=== PATIENT | female | born 1955 | race Caucasian/White ===

== ENCOUNTER 2020-01-05 10:17 | Emergency (ER) | payer OTHER ==
[~2020-01-05] VITALS: Ht 162.6 cm; Wt 102.5 kg
--- NOTE | 2020-01-05 10:19 | NUR ---
PATIENT BIBA ALS TO ER BED 4
[2020-01-05] MEDS ORDERED: NACL 0.9% 1,000 ML IV ONE (10:25)
[2020-01-05 10:27] VITALS: BP 90/41
--- NOTE | 2020-01-05 10:30 | NUR ---
BLOOD CULTURES DRAWN 1ST SET 10:30, 2ND 10:45,
[2020-01-05] MEDS ORDERED: OCTREOTIDE ACETATE 100 MCG/ML VIAL IV STA (10:33)
--- NOTE | 2020-01-05 10:35 | NUR ---
LAB AT BEDSIDE
[2020-01-05] MEDS ORDERED: cefTRIAXone 1,000 MG VIAL ONE (10:54)
[2020-01-05 10:56] LABS: BASOPHILS # (AUTO) 0.1 K/uL (0.00-0.22); BASOPHILS % (AUTO) 0.9 % (0.0-2.0); EOSINOPHILS # (AUTO) 0.2 K/uL (0-0.4); EOSINOPHILS % (AUTO) 1.6 % (0.0-4.0); LYMPHOCYTES # (AUTO) 2.4 K/uL (2.5-16.5); LYMPHOCYTES % (AUTO) 23.6 % (20.5-51.1); MEAN CORPUSCULAR HEMOGLOBIN 30 pg (27-31); MEAN CORPUSCULAR HGB CONC 32 g/dL (33-37); MEAN CORPUSCULAR VOLUME 93.2 fL (80-94); MONOCYTES # (AUTO) 0.9 K/uL (0.8-1.0); MONOCYTES % (AUTO) 8.9 % (1.7-9.3); NEUTROPHILS # (AUTO) 6.7 K/uL (1.8-7.7); PLATELET COUNT (AUTO) 170 K/uL (140-450); RED BLOOD CELL COUNT(AUTO) 1.46 MIL/uL (4.20-5.40); RED CELL DISTRIBUTION WIDTH 16.4 % (11.6-13.7); WHITE BLOOD COUNT (AUTO) 10.3 K/uL (4.8-10.8)
[2020-01-05 11:05] LABS: ANION GAP 15.1 (8-16); CARBON DIOXIDE 28.1 mmol/L (21-32); POTASSIUM 3.2 mmol/L (3.5-5.1)
[2020-01-05 11:08] LABS: PROTHROMBIN TIME 11.5 secs (10.8-13.4)
[2020-01-05 11:13] LABS: HEMATOCRIT 13.6 % (36-48); HEMOGLOBIN 4.4 g/dL (12.0-16.0)
--- NOTE | 2020-01-05 11:14 | NUR ---
NG TUBE INSERTED AND PLACED TO INTERMITTEN SUCTION, COFFE GROUD CONTENT NOTED, PENDING CHEST X-RAY TO CONFIRM PLACEMENT
[2020-01-05 11:15] LABS: CREATININE 5.6 mg/dL (0.6-1.3)
--- NOTE | 2020-01-05 11:17 | NUR ---
64 Y/O FEMALE DIYALSIS PT BIBA FROM HOME FOR GEN WEAKNESS AND COFFEE GROUND EMESIS X 2DAYS. PT ALSO APPEARS JAUNDICE ON SKIN AND EYES, WARM TO TOUCH, CAP REFILL 2 SEC, EYES PERRLA 3MM. ABDOMEN HARD, BLOATED, RIGID AND TENDER TO TOUCH. PT ACTIVELY VOMITING COFFE GROUND EMESIS. T[place]NEA, RR 30, ON 2L NC O2 [id number]%. HEART NORMAL RATE/ RHYTHM. HEMODYNAMICALLY STABLE. DR. REARDON AT BEDSIDE ASESSING PT. SIDE RAILS UP X2, BED LOCKED AND IN LOWEST POSITION. PHM- HTN, DM, ESRD
--- NOTE | 2020-01-05 11:20 | NUR ---
X RAY AT BEDSIDE
[2020-01-05 11:28] LABS: ANION GAP 15.1 (8-16); CARBON DIOXIDE 28.1 mmol/L (21-32); POTASSIUM 3.2 mmol/L (3.5-5.1)
[2020-01-05 11:29] LABS: ALBUMIN 2.1 g/dL (3.4-5.0); CREATININE 5.6 mg/dL (0.6-1.3); TOTAL BILIRUBIN 0.3 mg/dL (0.0-1.0)
--- NOTE | 2020-01-05 11:43 | NUR ---
RECEIVED CRITICAL LAB VALUES FROM LAB/[facility] HGB: 4.4, HCT:13.6, CREATENINE: 5.6, LACTIC ACID 6.7, DR. REARDON NOTTIFIED
--- NOTE | 2020-01-05 11:45 | NUR ---
URIRE NOT COLLECTED, PT UNABLE TO URINATE AT THIS TIME
--- NOTE | 2020-01-05 11:55 | NUR ---
X RAY RESULTS: NG TUBE PUSHED IN ADDITIONAL 5CM PER DR. REARDON ORDER, PT STATEBLE AT THIS TIME
--- NOTE | 2020-01-05 12:05 | NUR ---
PT TO BE TRANSFERED TO [facility] VIA AMBULANCE
--- NOTE | 2020-01-05 12:40 | NUR ---
BLOOD TRANSFUSION INITIATED VSS, NO SIGNS OF DISTRESS
--- NOTE | 2020-01-05 13:10 | NUR ---
PT TRANFERED TO [facility] VIA AMBULANCE, PT HEMODYNAMICALLY STABLE, BLOOD ADMINISTRATION TO BE CONTUNIED IN ROUTE.
--- NOTE | 2020-01-05 13:15 | NUR ---
Patient to be transferred to [facility]. Is being transferred due to HIGHER ACUITY OF CARE NEEDED. Receiving facility has accepting physician and available space. ER physician has signed transfer form. Patient or responsible alliance party has agreed to transfer and signed form. Patient belongings inventoried and will be sent with patient. Copy of nursing notes, lab reports, EKG, Physicians Orders and X-rays to be sent with patient. Report called to KWAME at receiving facility. [facility] ambulance service has been called for transfer. ETA is 1320.
--- NOTE | 2020-01-05 13:30 | NUR ---
REPORT CALLED TO KWAME CHARGE NURSE AT [facility].
[2020-01-05 13:45] VITALS: BP 138/45
--- NOTE | 2020-01-05 13:47 | NUR ---
Note renuka in EDM - 01/05/20 at 1349 by ALESSIO Patient to be transferred to [facility]. Is being transferred due to HIGHER ACUITY OF CARE NEEDED. Receiving facility has accepting physician and available space. ER physician has signed transfer form. Patient or responsible alliance party has agreed to transfer and signed form. Patient belongings inventoried and will be sent with patient. Copy of nursing notes, lab reports, EKG, Physicians Orders and X-rays to be sent with patient. Report called to KWAME at receiving facility. [facility] ambulance service has been called for transfer. ETA is 1320.
--- NOTE | 2020-01-07 06:05 | NUR ---
LATE ENTRY---- NS BOLUS DISCONTINUED AT 1130 AND SANDOSTATIN DISCONTINUED AT 1035
== END 2020-01-05 13:15 | disposition short-term general hospital (02) ==
LOC: MED 10:17
DX: K92.2 Gastrointestinal hemorrhage, unspecified (principal); E11.22 Type 2 diabetes mellitus with diabetic chronic kidney disease; I12.0 Hypertensive chronic kidney disease with stage 5 chronic kidney disease or end stage renal disease; N18.6 End stage renal disease; D64.9 Anemia, unspecified; Z99.2 Dependence on renal dialysis
CPT/HCPCS: 36415; 71045; 74176; 80048; 80053; 83605; 85025; 85610; 85730; 86886; 86900; 86901; 86920; 87040; 96365; 96375; 99291; J0696; J2354; J7030; P9016